=== PATIENT | female | born 1995 | race Two or more races ===

== ENCOUNTER 2021-05-19 16:59 | Emergency (ER) | payer SELFPAY ==
[~2021-05-19] VITALS: Ht 152.4 cm; Wt 46.0 kg
[2021-05-19 17:49] VITALS: BP 142/83
[2021-05-19 18:07] LABS: BILIRUBIN,URINE NEGATIVE (NEG); CLARITY,URINE TURBID; COLOR,URINE YELLOW; NITRITE,URINE NEGATIVE (NEG); PROTEIN,URINE NEGATIVE (NEG-TRACE)
--- NOTE | 2021-05-19 18:15 | PHYS DOC ---
General Adult EDM: Chief Complaint: VAGINAL BLEEDING HPI: HPI: Patient is a 25 year old female who presents with today noticed blood in the toilet and pain with urination. She states also when she would wipe after using the restroom there be blood on the told they were. She says she does not need to use a pad. Patient states that she is not bleeding vaginally. Patient is fearful that she is having a miscarriage. Patient rates her low mid abdominal discomfort at a 5 out of 10. Patient is G2, P1. Patient denies chest pain, shortness of air, fever, nausea, vomiting, diarrhea, back pain, headache, dizziness, syncope. Review of Systems: Review of Systems: Constitutional: Denies fever or chills. [] Eyes: Denies change in visual acuity. [] HENT: Denies nasal congestion or sore throat. [] Respiratory: Denies cough or shortness of breath. [] Cardiovascular: Denies chest pain or edema. [] GI: +Lower abdominal pain, denies nausea, vomiting, bloody stools or diarrhea. [] : Denies dysuria. +Burning with urination. +Hematuria[] Musculoskeletal: Denies back pain or joint pain. [] Integument: Denies rash. [] Neurologic: Denies headache, focal weakness or sensory changes. [] Endocrine: Denies polyuria or polydipsia. [] Lymphatic: Denies swollen glands. [] Psychiatric: Denies depression or anxiety. [] Heart Score: C/O Chest Pain: No Physical Exam: PE: Constitutional: Well developed, well nourished, no acute distress, non-toxic appearance. [] HENT: Normocephalic, atraumatic, bilateral external ears normal, oropharynx moist, no oral exudates, nose normal. [] Eyes: PERRLA, EOMI, conjunctiva normal, no discharge. [] Neck: Normal range of motion, no tenderness, supple, no stridor. [] Cardiovascular:Heart rate regular rhythm, no murmur [] Lungs & Thorax: Bilateral breath sounds clear to auscultation [] Abdomen: Bowel sounds normal, soft, low mid tenderness, no masses, no pulsatile masses. [] Skin: Warm, dry, no erythema, no rash. [] Back: No tenderness, no CVA tenderness. [] Extremities: No tenderness, no cyanosis, no clubbing, ROM intact, no edema. [] Neurologic: Alert and oriented X 3, normal motor function, normal sensory function, no focal deficits noted. [] Psychologic: Affect normal, judgement normal, mood normal. [] EKG: EKG: [] Radiology/Procedures: Radiology/Procedures: [] Impression: [facility] [address] [place] [address] IMAGING REPORT Signed PATIENT: KENN LINDQUISTOUNT: [id number] : 1995 LOCATION: ER AGE: 25 SEX: F EXAM STATUS: REG ER ORD. PHYSICIAN: SAEID MORALES APRN REASON: ABDOMINAL PAIN IN PROCEDURE: OB <14 WKS W/TV Exam: Ultrasound OB less than 14 weeks Indication: Abdominal pain and Technique: Real-time grayscale and color Doppler images of the pelvis were obtained by the department warehouse examiner. Comparisons: None FINDINGS: Uterus measures 8.7 x 6.4 x 6.1 cm. Within the endometrium there is a gestational sac with internal yolk sac and pole. [place]-rump length is measured at 1.9 cm corresponding to 8 weeks 3 days gestation. Estimated due date by ultrasound: 12/26/2021 Estimated due date by LMP: 12/05/2021 Right ovary measures 1.8 x 2.7 x 1.3 cm. Left ovary measures 2.3 x 1.8 x 1.0 cm. Vascular flow identified in the ovaries bilaterally. No free fluid in the pelvis. IMPRESSION: 1. Single live intrauterine gestation of 8 weeks 3 days gestation by current ultrasound, discordant with LMP. 2. Dedicated survey is recommended at 18-20 weeks gestation. Electronically signed by: Huong Fernandes MD (05/19/2021 7:09 PM) [facility] DICTATED and SIGNED BY: HUONG FERNANDES MD DATE: 05/19/21 [id number] Course & Med Decision Making: Course & Med Decision Making Pertinent Labs and Imaging studies reviewed. (See chart for details) See HPI. Alert and oriented x4. Ambulatory with a steady gait. Skin pink warm and dry. Abdomen soft but slightly tender to the low mid abdomen. Denies concern for STD or abnormal vaginal discharge. Speaks in full clear sentences. Afebrile. Ultrasound shows no acute findings. Urinalysis does not quite show a UTI but she is having symptoms and she is I am going to treat her with Keflex. Patient is to follow-up with OB doctor soon as possible. [] Ilya Disclaimer: Dragon Disclaimer: This electronic medical record was generated, in whole or in part, using a voice recognition dictation system. Departure Departure Impression: Primary Impression: Urinary symptom or sign Additional Impression: Abdominal pain affecting Disposition: HOME / SELF CARE / HOMELESS Condition: STABLE Referrals: NO PCP (PCP) MERLY JACOME MD Patient Instructions: Abdominal Pain During , - Urinary Tract Infection Additional Instructions: Follow-up with your OB doctor soon as possible. Begin taking vitamins. Drink plenty of fluids stay hydrated. Take medication as prescribed and with food. If you begin to bleed vaginally and go through more than 1 pad an hour you need to return to the emergency room. Scripts Cephalexin (KEFLEX) 500 Mg Capsule 1 CAP PO TID, #21 CAP Prov: SAEID MORALES BOTTLE HOUSE CLEANERS SUPERVISOR 05/19/21 SAEID MORALES BOTTLE HOUSE CLEANERS SUPERVISOR May 19, 2021 18:15
[2021-05-19 18:22] LABS: BASO # 0.1 x10^3/uL (0.0-0.2); BASO % 1 % (0-3); EOS # 0.1 x10^3/uL (0.0-0.7); EOS % 1 % (0-3); HEMATOCRIT 38.9 % (36.0-47.0); HEMOGLOBIN 13.7 g/dL (12.0-15.5); LYMPH % 29 % (24-48); MEAN CORPUSCULAR HEMOGLOBIN 33 pg (25-35); MEAN CORPUSCULAR HGB CONC 35 g/dL (31-37); MEAN CORPUSCULAR VOLUME 93 fL (79-100); MONO # 0.4 x10^3/uL (0.0-1.1); MONO % 6 % (0-9); NEUT # 4.4 x10^3/uL (1.8-7.7); NEUT % 63 % (31-73); PLATELET COUNT 220 x10^3/uL (140-400); RED CELL DISTRIBUTION WIDTH 12.8 % (11.5-14.5)
[2021-05-19 18:26] LABS: AMORPHOUS SEDIMENT,UR PRESENT /HPF
[2021-05-19 18:27] LABS: BACTERIA,URINE FEW /HPF (0-FEW); RBC,URINE 0 /HPF (0-2)
[2021-05-19 18:36] LABS: CALCIUM 8.8 mg/dL (8.5-10.1); CREATININE 0.5 mg/dL (0.6-1.0); GFR 149.1; POTASSIUM 3.7 mmol/L (3.5-5.1)
[2021-05-19 18:42] LABS: ALBUMIN 3.6 g/dL (3.4-5.0); ALBUMIN/GLOBULIN RATIO 0.9 (1.0-1.7); TOTAL BILIRUBIN 0.6 mg/dL (0.2-1.0); TOTAL PROTEIN 7.5 g/dL (6.4-8.2)
--- NOTE | 2021-05-19 19:11 | RAD ---
Exam: Ultrasound OB less than 14 weeks Indication: Abdominal pain and Technique: Real-time grayscale and color Doppler images of the pelvis were obtained by the department sporting goods sales associate. Comparisons: None FINDINGS: Uterus measures 8.7 x 6.4 x 6.1 cm. Within the endometrium there is a gestational sac with internal y olk sac and pole. [place]-rump length is measured at 1.9 cm corresponding to 8 weeks 3 days gesta tion. Estimated due date by ultrasound: 12/26/2021 Estimated due date by LMP: 12/05/2021 Right ovary measures 1.8 x 2.7 x 1.3 cm. Left ovary measures 2.3 x 1.8 x 1.0 cm. Vascular flow identified in the ovaries bilaterally. No free fluid in the pelvis. IMPRESSION: 1. Single live intrauterine gestation of 8 weeks 3 days gestation by current ultrasound, discordant with LMP. 2. Dedicated survey is recommended at 18-20 weeks gestation. Electronically signed by: Huong Rodriguez MD (05/19/2021 7:09 PM) [facility]
[2021-05-19] MEDS ORDERED: CEPH500C PO (19:19)
== END 2021-05-19 19:42 | disposition home or self-care (01) ==
LOC: ER 16:59
DX: O26.891 Other specified pregnancy related conditions, first trimester (principal); R10.30 Lower abdominal pain, unspecified; R30.0 Dysuria; R31.9 Hematuria, unspecified; Z3A.08 8 weeks gestation of pregnancy
CPT/HCPCS: 36415; 76801; 76817; 80053; 81001; 81025; 84702; 85025; 87491; 87591; 99284

== ENCOUNTER 2021-05-20 08:02 | Emergency (ER) | payer SELFPAY ==
[~2021-05-20] VITALS: Ht 152.4 cm; Wt 46.0 kg
[~2021-05-20 08:02] MED LIST: CEPH500C PO
[2021-05-20 09:05] LABS: CLARITY,URINE TURBID; COLOR,URINE RED
[2021-05-20 09:14] LABS: RBC,URINE TNTC /HPF (0-2)
[2021-05-20 09:15] LABS: BACTERIA,URINE 0 /HPF (0-FEW); WBC,URINE OCC /HPF (0-4)
[2021-05-20 09:37] LABS: BASO % 1 % (0-3); EOS % 1 % (0-3); HEMATOCRIT 39.1 % (36.0-47.0); HEMOGLOBIN 13.5 g/dL (12.0-15.5); LYMPH # 1.2 x10^3/uL (1.0-4.8); LYMPH % 14 % (24-48); MEAN CORPUSCULAR HEMOGLOBIN 32 pg (25-35); MEAN CORPUSCULAR HGB CONC 34 g/dL (31-37); MEAN CORPUSCULAR VOLUME 93 fL (79-100); MONO # 0.4 x10^3/uL (0.0-1.1); MONO % 5 % (0-9); NEUT # 7.2 x10^3/uL (1.8-7.7); NEUT % 81 % (31-73); PLATELET COUNT 203 x10^3/uL (140-400); RED BLOOD COUNT 4.22 x10^6/uL (3.50-5.40); RED CELL DISTRIBUTION WIDTH 12.9 % (11.5-14.5); WHITE BLOOD COUNT 8.9 x10^3/uL (4.0-11.0)
[2021-05-20 09:46] LABS: CALCIUM 8.5 mg/dL (8.5-10.1); CREATININE 0.4 mg/dL (0.6-1.0); GFR 192.9; POTASSIUM 3.9 mmol/L (3.5-5.1)
--- NOTE | 2021-05-20 11:04 | RAD ---
EXAMINATION: US OB <14 WKS +TV, 05/20/2021 10:03 AM CLINICAL INDICATION: Vaginal bleeding, passing large clots. TECHNIQUE: Grayscale, color and spectral Doppler ultrasound images of the pelvis via first trimester OB protocol. COMPARISON: OB ultrasound 05/19/2021 FINDINGS: The uterus measures 8.9 x 5.4 x 5.4 cm. The gestational sac and embryo seen on OB ultrasound from one day ago are no longer present. There is no intrauterine visualized. There is thick and het erogeneous material in the endometrial canal measuring 1 cm in thickness. There is mild adjacent hype remia in the myometrium. The right ovary measures 2.3 x 1.4 x 1.4 cm. The left ovary measures 2.9 x 2.1 x 1.1 cm. Normal ovari an flow bilaterally. There is trace simple free fluid in the cul-de-sac. IMPRESSION: 1. Findings of failed first trimester . The gestational sac and embryo seen on ultrasound fr om one day ago are no longer present. 2. There is thickened heterogeneous material in the endometrial canal which could be clot or retained products of conception. Results discussed by Dr. Holloway with Dr. Ware in the ER at 11:00 AM on 05/20/2021. Electronically signed by: Hoa Holloway MD (05/20/2021 11:02 AM) [id number]
--- NOTE | 2021-05-20 11:20 | PHYS DOC ---
Past Medical History Past Medical History: No Pertinent History Past Surgical History: No Surgical History Smoking Status: Never Smoker Alcohol Use: None General Adult EDM: Chief Complaint: VAGINAL BLEEDING HPI: HPI: 25-year-old G2, P1 currently 8-week gestation female presents the emergency department complaining of vaginal bleeding and passage of large amount of clot this morning. She was in the ER yesterday and had an ultrasound performed which showed an IUP and was discharged home after presenting with some vaginal bleeding. She reports that her bleeding continued and then got worse this morning with passage of the large clot. She admits to some cramping pain in her lower abdomen. She denies any recent illness, vomiting, stool changes, urine changes, or any other symptoms. She is otherwise healthy and has no medical complaints of chronic conditions. Review of Systems: Review of Systems: Constitutional: Negative except what was mentioned in HPI. Eyes: Negative except what was mentioned in HPI. HENT: Negative except what was mentioned in HPI. Respiratory: Negative except what was mentioned in HPI. Cardiovascular: Negative except what was mentioned in HPI. GI: Negative except what was mentioned in HPI. : Negative except what was mentioned in HPI. Musculoskeletal: Negative except what was mentioned in HPI. Integument: Negative except what was mentioned in HPI. Neurologic: Negative except what was mentioned in HPI. Heart Score: C/O Chest Pain: No Family History: Family History: Noncontributory Allergies: Allergies: Allergies Coded Allergies Type Severity Reaction Last Updated Verified No Known Drug Allergies 05/19/21 No Physical Exam: PE: Constitutional: No acute distress, non-toxic appearance. HENT: Atraumatic, bilateral external ears normal, nose normal. Eyes: PERRLA, EOMI, conjunctiva normal, no discharge. Neck: Normal range of motion, supple, no stridor. Cardiovascular: Heart rate regular rhythm. 2+ radial pulses Lungs & Thorax: No respiratory distress, symmetrical expansion. Bilateral breath sounds clear to auscultation Abdomen: Soft, no tenderness Genitourinary: External: Normal external genitalia, no lesions. Speculum: Large amount of vaginal bleeding with clot appreciated in the vaginal vault. Cervix appears to be open with clot protruding through. Some active bleeding is appreciated. Bimanual: Os appears to be open. No adnexal tenderness or masses are obvious. Female stonecutter was present for entire exam Skin: Warm, dry. Extremities: No tenderness, no cyanosis, ROM intact, no edema. Neurologic: Alert and oriented X 3, normal motor function, normal sensory function, no focal deficits noted. Non ataxic gait. GCS 15. Psychologic: Affect normal, judgment normal, mood normal. Current Patient Data: Labs: Laboratory Tests Test 05/20/21 08:25 05/20/21 09:00 Urine Collection Type Unknown Urine Color Red Urine Clarity Turbid Urine pH 5.0 (<5.0-8.0) Urine Specific [place] 1.025 (1.000-1.030) Urine Protein mg/dL (NEG-TRACE) Urine Glucose (UA) mg/dL (NEG) Urine Ketones (Stick) mg/dL (NEG) Urine Blood (NEG) Urine Nitrite (NEG) Urine Bilirubin (NEG) Urine Urobilinogen Dipstick mg/dL (0.2 mg/dL) Urine Leukocyte Esterase (NEG) Urine RBC Tntc /HPF (0-2) Urine WBC Occ /HPF (0-4) Urine Bacteria 0 /HPF (0-FEW) White Blood Count 8.9 x10^3/uL (4.0-11.0) Red Blood Count 4.22 x10^6/uL (3.50-5.40) Hemoglobin 13.5 g/dL (12.0-15.5) Hematocrit 39.1 % (36.0-47.0) Mean Corpuscular Volume 93 fL (79-100) Mean Corpuscular Hemoglobin 32 pg (25-35) Mean Corpuscular Hemoglobin Concent 34 g/dL (31-37) Red Cell Distribution Width 12.9 % (11.5-14.5) Platelet Count 203 x10^3/uL (140-400) Neutrophils (%) (Auto) 81 % (31-73) H Lymphocytes (%) (Auto) 14 % (24-48) L Monocytes (%) (Auto) 5 % (0-9) Eosinophils (%) (Auto) 1 % (0-3) Basophils (%) (Auto) 1 % (0-3) Neutrophils # (Auto) 7.2 x10^3/uL (1.8-7.7) Lymphocytes # (Auto) 1.2 x10^3/uL (1.0-4.8) Monocytes # (Auto) 0.4 x10^3/uL (0.0-1.1) Eosinophils # (Auto) 0.0 x10^3/uL (0.0-0.7) Basophils # (Auto) 0.0 x10^3/uL (0.0-0.2) Maternal Serum HCG Beta Subunit 3287 mIU/mL (0-5) H Sodium Level 137 mmol/L (136-145) Potassium Level 3.9 mmol/L (3.5-5.1) Chloride Level 102 mmol/L (98-107) Carbon Dioxide Level 24 mmol/L (21-32) Anion Gap 11 (6-14) Blood Urea Nitrogen 12 mg/dL (7-20) Creatinine 0.4 mg/dL (0.6-1.0) L Estimated GFR (Cockcroft-Gault) 192.9 Glucose Level 86 mg/dL (70-99) Calcium Level 8.5 mg/dL (8.5-10.1) Laboratory Tests 05/20/21 09:00 Laboratory Tests 05/20/21 09:00 Vital Signs: Vital Signs Date Time Temp Pulse Resp B/P (MAP) Pulse Ox O2 Delivery O2 Flow Rate FiO2 05/20/21 10:10 63 15 106/61 (76) 100 Room Air 05/20/21 08:20 98.8 98.8 Radiology/Procedures: Radiology/Procedures: PROCEDURE: OB <14 WKS W/TV EXAMINATION: US OB <14 WKS +TV, 05/20/2021 10:03 AM CLINICAL INDICATION: Vaginal bleeding, passing large clots. TECHNIQUE: Grayscale, color and spectral Doppler ultrasound images of the pelvis via first trimester OB protocol. COMPARISON: OB ultrasound 05/19/2021 FINDINGS: The uterus measures 8.9 x 5.4 x 5.4 cm. The gestational sac and embryo seen on OB ultrasound from one day ago are no longer present. There is no intrauterine visualized. There is thick and heterogeneous material in the endometrial canal measuring 1 cm in thickness. There is mild adjacent hyperemia in the myometrium. The right ovary measures 2.3 x 1.4 x 1.4 cm. The left ovary measures 2.9 x 2.1 x 1.1 cm. Normal ovarian flow bilaterally. There is trace simple free fluid in the cul-de-sac. IMPRESSION: 1. Findings of failed first trimester . The gestational sac and embryo seen on ultrasound from one day ago are no longer present. 2. There is thickened heterogeneous material in the endometrial canal which could be clot or retained products of conception. Results discussed by Dr. Holloway with Dr. Ware in the ER at 11:00 AM on 05/20/2021. Electronically signed by: Hoa Holloway MD (05/20/2021 11:02 AM) Course & Med Decision Making: Course & Med Decision Making Objective findings on exam including pelvic exam are suggestive of a incomplete . This was confirmed with ultrasound showing no signs of . I discussed the case with Dr. Merly Hebert, as the patient does not have an [employer]LING [employer]LEY MECH[employer]IC follow-up. The patient is otherwise hemodynamically stable. There is no further interventions recommended by Dr. Hebert and expectant management is recommended.. Plan to follow-up the patient in the clinic for repeat exam and studies. Patient is comfortable with this plan. I discussed the diagnosis of miscarriage and discussed return precautions the patient occluding increased bleeding, syncope, abdominal pain or any further symptoms she would deem appropriate for reevaluation. Of note, the patient's ultrasound was performed during the last ED encounter was read as a live IUP and the patient was discharged home. Apparently, this was mis-read. I got a call from the radiology department stating that the study was reread as a intrauterine demise. I disclosed this error to the patient who was understanding. science intern was used for all encounters, examinations and counseling today. Blood type O+ Departure Departure Impression: Primary Impression: Complete Disposition: 01 HOME / SELF CARE / HOMELESS Condition: STABLE Referrals: MERLY HEBERT MD Patient Instructions: Miscarriage, [id number] Additional Instructions: You are diagnosed today with a spontaneous , or what is commonly known as a miscarriage. You need to follow-up with B[employer]LEY MECH[employer]IC in 2 to 3 days for a repeat exam as well as repeat ultrasound to make sure that you passed all the products. Please return to the emergency department he had any further bleeding he cannot control at home. Pain, or any further symptom he would deem appropriate for a repeat evaluation. You should expect some bleeding over the next 3 to 7 days. You may use ibuprofen [id number] for pain at home BRETT WARE DO May 20, 2021 11:20
[2021-05-20 11:40] VITALS: BP 108/66
== END 2021-05-20 11:57 | disposition home or self-care (01) ==
LOC: ER 08:02
DX: O03.9 Complete or unspecified spontaneous abortion without complication (principal)
CPT/HCPCS: 36415; 76801; 76817; 80048; 81001; 84702; 85025; 86850; 86900; 86901; 99285